=== PATIENT | female | born 1980 | race Caucasian/White ===

== ENCOUNTER → 2021-06-24 | Outpatient (CLI) | payer MEDICAID ==
[2021-06-24 08:57] LABS: BUN 13 mg/dl (7-24); CHLORIDE 108 mmol/L (98-107); CREATININE 0.68 mg/dL (0.55-1.02); POTASSIUM 4.2 mmol/L (3.5-5.1); SGOT/AST 31 IU/L (3-35); SGPT/ALT 86 U/L (12-78); SODIUM 139 mmol/L (136-145); TOTAL PROTEIN 7.9 gm/dL (6.4-8.2)
[2021-06-24 08:58] LABS: ALKALINE PHOSPHATASE 95 U/L (45-117)
[2021-06-25 08:08] LABS: HEPATITIS B SURFACE AG Negative (Negative)
== END | disposition home or self-care (01) ==
LOC: LAB 08:14
PROVIDERS: ATTEND Registered Nurse
DX: F41.9 Anxiety disorder, unspecified (principal); F11.10 Opioid abuse, uncomplicated; F32.A Depression, unspecified